=== PATIENT | female | born 1955 | race Two or more races ===

== ENCOUNTER → 2025-02-09 | Outpatient (CLI) | payer MEDICARE, OTHER, SELFPAY ==
[2025-02-09 13:25] LABS: Hematocrit 41.8 % (37-47); Hemoglobin 14.3 g/dL (12.0-15.0); Immature Granulocytes Count 0.020 X10^3/uL (0.0-0.0); Mean Corp Hgb Conc 34.2 g/dL (32-36); Mean Corpuscular Volume 88.9 fL (81-99); Mean Platelet Vol. 10.1 fl (6.2-12.0); NRBC Flagged by Analyzer 0 % (0-5); Platelet Count 297 K/mm3 (150-450); RBC Distribution Width CV 12.6 % (11.6-14.6); RBC Distribution Width SD 41.6 fl (35.1-43.9); Red Blood Count 4.70 M/mm3 (4.2-5.4); White Blood Count 8.7 K/mm3 (4.4-11.0)
== END | disposition home or self-care (01) ==
LOC: LABSPEC 13:05
PROVIDERS: Referring Provider Nurse Practitioner Family; Visit Provider Nurse Practitioner Family
DX: I10 Essential (primary) hypertension (principal); R53.82 Chronic fatigue, unspecified; R61 Generalized hyperhidrosis; G47.00 Insomnia, unspecified; N95.1 Menopausal and female climacteric states; H93.13 Tinnitus, bilateral; R00.2 Palpitations; R06.00 Dyspnea, unspecified; J45.909 Unspecified asthma, uncomplicated; R14.0 Abdominal distension (gaseous); R10.84 Generalized abdominal pain; R11.0 Nausea; K59.00 Constipation, unspecified; K64.9 Unspecified hemorrhoids; R35.0 Frequency of micturition; M62.9 Disorder of muscle, unspecified; G31.84 Mild cognitive impairment of uncertain or unknown etiology; F41.9 Anxiety disorder, unspecified; R51.9 Headache, unspecified; L20.9 Atopic dermatitis, unspecified; A69.20 Lyme disease, unspecified; A44.0 Systemic bartonellosis
CPT/HCPCS: 85025